=== PATIENT | female | born 1955 | race Caucasian/White ===

== ENCOUNTER 2022-08-26 11:41 | Emergency (ER) | payer MEDICARE, MEDICAID, SELFPAY ==
--- NOTE | ~2022-08-26 | XR_ITS ---
EXAMINATION: XR ankle LT 2V, XR foot LT 2V DATE: 08/26/2022 12:10 INDICATION: Left foot and ankle pain, swelling and bruising post injury TECHNIQUE: 1. Anteroposterior and lateral view of the left ankle were obtained. 2. Dorsoplantar and lateral views of the left foot were obtained. COMPARISON: None. FINDINGS: Minimally displaced comminuted fractures extending across the medial malleolus of the left tibia and across the distal metadiaphysis of the left fibula. The latter fracture across the medial cortex of t he distal fibula approximately 13 mm above level of the tibiotalar joint line. There is minimal widen ing of the medial clear space. Prominent soft tissue swelling about the left ankle, hindfoot and dist al lower leg. No ankle joint effusion. Normal alignment with no fractures in the left foot. 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 Sm all enthesophytes and enthesopathic ossicles at the calcaneal insertion of the distal Achilles tendon . IMPRESSION: 1. Minimally displaced, mildly comminuted fractures of the medial malleolus and distal fibular metadi aphysis. Reviewed, dictated and finalized at [facility] IMPRESSION: 1. Minimally displaced, mildly comminuted fractures of the medial malleolus and distal fibular metadiaphysis.
[2022-08-26 11:56] VITALS: BP 118/76; PULSE 110; RESP 16; TEMP 36.9; O2SAT 99
--- NOTE | 2022-08-26 12:37 | PC.NURSE ---
Patient complains of left ankle pain, swelling and bruising after twisting her ankle and falling. Patient denies hitting head or LOC. Patient only complains of left ankle pain.
[2022-08-26] MEDS: HYDROcodone/acetaminophen (*CRX) 5-325 MG TABLET 1 TAB PO (12:56)
--- NOTE | 2022-08-26 13:03 | ED.LOWEXIN ---
HPI - Extremity Injury (Lower) General Chief Complaint: Extremity Injury, Lower Stated Complaint: ankle injury Time Seen by Provider: 08/26/22 11:48 History of Present Illness HPI Narrative: 66-year-old female presents emergency room for evaluation of left ankle and foot pain. States that she rolled her left ankle yesterday when carpeting the floors. Is been unable to applying any pressure or ambulate. No other injuries. Pain is worse with movement. Related Data Home Medications Medication Instructions Recorded Confirmed amitriptyline 100 mg tablet 100 mg PO QHS 05/14/21 05/14/21 diazepam 5 mg tablet 5 mg PO TID PRN 05/14/21 05/14/21 gabapentin 600 mg tablet 600 mg PO TID 05/14/21 05/14/21 pantoprazole 40 mg tablet,delayed 40 mg PO QAM 05/14/21 05/14/21 release (Protonix) venlafaxine 75 mg tablet 75 mg PO BID 05/14/21 05/14/21 Allergies Allergy/AdvReac Type Severity Reaction Status Date / Time No Known Allergies Allergy Verified 08/26/22 12:55 Review of Systems Review of Systems: CONSTITUTIONAL: Denies fever, chills, or sweats. EYES: Denies visual changes, redness, or discharge. ENT: Denies rhinorrhea, congestion, sore throat, or otalgia. CARDIOVASCULAR: Denies chest pain, palpitations, or edema. RESPIRATORY: Denies cough or dyspnea. GASTROINTESTINAL: Denies abdominal pain, nausea, vomiting, or diarrhea. GENITOURINARY: Denies dysuria or hematuria. SKIN: Denies rash or itching. MUSCULOSKELETAL: Reports left ankle pain NEUROLOGIC: Denies headache, numbness, dizziness, or weakness. PSYCHIATRIC: Denies anxiety or depression. [facility] Social History Social History Smoking status: Never smoker Alcohol intake: never Exam Narrative: GENERAL: Well-appearing, well-nourished, no physical limitations, and in no acute distress. HEAD: Normocephalic, atraumatic. EYES: Conjunctivae normal, PERRLA and EOMI. ENT: External nose normal, Nares clear, no rhinorrhea or epistaxis. Mucous membranes moist. Oropharynx without tonsillar hypertrophy exudate or other lesions. External ears normal, bilateral TMs normal bilaterally NECK: Supple. No meningeal signs. No adenopathy or masses. No carotid bruits or JVD CHEST: Clear to auscultation. No respiratory distress. No wheezes rales or rhonchi. No tenderness. HEART: Regular rate and rhythm. No murmur heard. Normal peripheral pulses. ABDOMEN: Soft, nontender, nondistended, normal active bowel sounds. : Normal external male/female exam. BACK: No CVA tenderness; No cervical/thoracic/lumbar tenderness, step-offs, bony abnormality; FROM EXTREMITIES: Left ankle: +STS with +TTP to medial and lateral malleolus. Limited range of motion due to pain. Neurovascular is intact distally. No obvious bony abnormality. SKIN: Warm, dry, no rash. No noted wounds NEURO: No focal deficits. Alert and oriented x3. MAEW. CN's II-XI intact bilaterally, normal gait PSYCH: Cooperative. Normal mood and affect. Course Vital Signs Vital signs: Vital Signs Temperature 36.9 C 08/26/22 11:56 Pulse Rate 110 H 08/26/22 11:56 Respiratory Rate 16 08/26/22 11:56 Blood Pressure 118/76 08/26/22 11:56 Pulse Oximetry 99 08/26/22 11:56 Temperature 36.9 C 08/26/22 11:56 Pulse Rate 110 H 08/26/22 11:56 Respiratory Rate 16 08/26/22 11:56 Blood Pressure 118/76 08/26/22 11:56 Pulse Oximetry 99 08/26/22 11:56 Discharge Plan Discharge Clinical Impression: Bimalleolar fracture of left ankle Patient Disposition: Home, Self-Care Condition: Stable Instructions: Antibiotic Form Prescriptions: New hydrocodone-acetaminophen 5-325 mg tablet 1 tablet PO Q8H PRN (Reason: pain) Qty: 15 0RF No Action venlafaxine 75 mg tablet 75 mg PO BID gabapentin 600 mg tablet 600 mg PO TID pantoprazole [Protonix] 40 mg tablet,delayed release (DR/EC) 40 mg PO QAM amitriptyline 100 mg tablet 100
== END 2022-08-26 13:47 | disposition home or self-care (01) ==
PROVIDERS: Emergency Provider Nurse Practitioner Family; PCP Internal Medicine
DX: S82.842A Displaced bimalleolar fracture of left lower leg, initial encounter for closed fracture (principal); X50.0XXA Overexertion from strenuous movement or load, initial encounter
CPT/HCPCS: 29515; 73600; 73620; 99284; A9270

== ENCOUNTER 2022-11-13 10:55 | Outpatient (CLI) | payer MEDICARE, MEDICAID, SELFPAY ==
--- NOTE | ~2022-11-13 | CT_ITS ---
Noncontrast CT scan of the left ankle CLINICAL HISTORY: Ankle fracture TECHNIQUE: Axial noncontrast imaging of the left ankle was performed. Sagittal and coronal reformatte d images were constructed. Dose reduction technique was used on this scan by utilizing automated expo sure control and iterative reconstruction technique. The dose-length product (DLP) was 261.93 mGy-cm. COMPARISON: Radiographs dated 11/06/2022 Findings: There is an oblique fracture deformity of the distal fibular shaft, with surrounding bridgi ng callus formation, compatible with subacute fracture, with significant interval healing taking plac e. There is focal heterotopic ossification at the region of the tibia fibular syndesmosis, with quest ionable small, healed posterior malleolus fracture deformity. There is also an oblique fracture of th e medial malleolus. This fracture, in contrast to the fibular fracture, demonstrates cortication nora g the fracture margins with no significant callus formation. Alignment of the ankle mortise remains n ear anatomic. No significant soft tissue abnormality evident on noncontrast CT imaging. IMPRESSION: Medial malleolus fracture demonstrates imaging signs suggestive of developing nonunion, with corticat ion along the fracture margins and no significant callus formation. Correlation with timeframe of ini tial injury advised. Subacute, healing fracture of the distal fibular shaft, with bridging callus about the fracture site. Questionable healed small posterior malleolus fracture deformity, with heterotopic ossification at th e tibiotalar syndesmosis. Reviewed, dictated and finalized at [facility]. IMPRESSION: Medial malleolus fracture demonstrates imaging signs suggestive of developing n onunion, with cortication along the fracture margins and no significant callus formation. Correlation with timeframe of initial injury advised. Subacute, healing fracture of the distal fibular shaft, with bridging callus ab out the fracture site. Questionable healed small posterior malleolus fracture deformity, with heteroto pic ossification at the tibiotalar syndesmosis.
== END 2022-11-13 10:56 | disposition home or self-care (01) ==
PROVIDERS: PCP Internal Medicine; Visit Provider Nurse Practitioner
DX: S82.55XA Nondisplaced fracture of medial malleolus of left tibia, initial encounter for closed fracture (principal); X58.XXXA Exposure to other specified factors, initial encounter
CPT/HCPCS: 73700